=== PATIENT | female | born 1950 | race Caucasian/White ===

== ENCOUNTER 2025-02-18 07:52 | Outpatient (CLI) | payer MEDICARE, BC, SELFPAY | END 2025-02-18 07:53 | disposition home or self-care (01) | LOC: WOUND 07:59 | PROVIDERS: PCP Family Medicine; Visit Provider Nurse Practitioner Family | DX: L73.2 Hidradenitis suppurativa (principal); E66.01 Morbid (severe) obesity due to excess calories; Z68.41 Body mass index [BMI] 40.0-44.9, adult | CPT/HCPCS: 11042; G0463 ==